=== PATIENT | female | born 1995 | race Caucasian/White ===

== ENCOUNTER 2018-06-27 14:26 | Emergency (ER) | payer MEDICAID, OTHER ==
[~2018-06-27] VITALS: Ht 160 cm; Wt 94.9 kg
[2018-06-27 14:33] VITALS: Ht 160 cm; Wt 94.9 kg
[2018-06-27] MEDS ORDERED: SOD CHLORIDE 0.9% 1,000 ML IV STA (14:37)
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
[2018-06-27] MEDS ORDERED: ACET500C5 PO (18:34)
[2018-06-27 19:14] VITALS: BP 118/66; PULSE 85; RESP 18
== END 2018-06-27 19:15 | disposition home or self-care (01) ==
LOC: FTE 14:26
DX: O03.9 Complete or unspecified spontaneous abortion without complication (principal)
CPT/HCPCS: 36415; 76801; 76817; 81003; 84702; 85025; 86900; 86901; 88305; J7030; Z7502